=== PATIENT | female | born 1970 | race African-American/Black ===

== ENCOUNTER 2018-12-26 20:19 | Emergency (ER) | payer MEDICAID ==
[~2018-12-26] VITALS: Ht 170.2 cm; Wt 163.3 kg
[2018-12-26 20:28] VITALS: BP 153/92
== END 2018-12-26 21:41 | disposition home or self-care (01) ==
LOC: ER 20:24
DX: I10 Essential (primary) hypertension (principal); Z76.0 Encounter for issue of repeat prescription

== ENCOUNTER 2020-05-21 11:22 | Emergency (ER) | payer MEDICAID ==
[~2020-05-21] VITALS: Ht 175.3 cm; Wt 90.7 kg
[2020-05-21 14:20] VITALS: BP 135/78
== END 2020-05-21 14:21 | disposition home or self-care (01) ==
LOC: ER 11:22
DX: U07.1 COVID-19 (principal); R19.7 Diarrhea, unspecified; F17.210 Nicotine dependence, cigarettes, uncomplicated; I10 Essential (primary) hypertension
CPT/HCPCS: 36415; 87426

== ENCOUNTER 2020-05-24 17:58 | Inpatient (IN) | payer MEDICAID ==
[~2020-05-24] VITALS: Ht 170.2 cm; Wt 170.2 kg
[2020-05-24 19:52] LABS: Basophils # (auto) 0 10 ^3/uL (0-0.2); Basophils % (auto) 0.6 % (0.0-2.0); Eosinophils # (auto) 0 10 ^3/uL (0-0.8); Hematocrit 34.8 % (36.0-46.0); Hemoglobin 11.2 g/dL (12.2-16.2); Lymphocytes # (auto) 0.7 10 ^3/uL (0.4-5.4); Lymphocytes % (auto) 33.8 % (10.0-50.0); Mean Corpuscular Hemoglobin 30.2 pg (28.0-32.0); Mean Corpuscular Hgb Conc. 32.2 g/dL (32.0-36.0); Mean Corpuscular Volume 93.9 fL (80.0-100.0); Monocytes # (auto) 0.3 10 ^3/uL (0-1.3); Monocytes % (auto) 15.7 % (0.0-12.0); Neutrophils # (auto) 1.1 10 ^3/uL (1.6-8.6); Neutrophils % (auto) 49.9 % (37.0-80.0); Nucleated Red Blood Cells % 0.2 %; Platelet Count (auto) 110 10^3/uL (140-450); Red Blood Cells 3.71 10^6/uL (4.0-5.20); Red Cell Distribution Width 16.2 % (11.8-14.3); White Blood Cell 2.1 10^3/uL (4.4-10.8)
[2020-05-24 20:00] LABS: Urine Bacteria NONE SEEN /hpf (None Seen); Urine Blood 3+ /uL (Negative); Urine WBC 1167 /hpf (0 - 5); Urine WBC Clumps PRESENT /hpf (None Seen)
[2020-05-24 20:02] LABS: Urine Specific Gravity 1.015 (1.001-1.035)
[2020-05-24 20:09] LABS: BUN/Creatinine Ratio 9.2; Calcium 8.4 mg/dL (8.5-10.1); Magnesium 1.9 mg/dL (1.6-2.6); Potassium 3.7 mmol/L (3.5-5.1)
[2020-05-24 20:14] LABS: Bilirubin, Total 0.2 mg/dL (0.2-1.0); Total Protein 7.6 g/dL (6.4-8.2)
[2020-05-24] MEDS ORDERED: SODIUM CHLORIDE 0.9% 1,000 ML IVB ONE (20:45)
[2020-05-24] MEDS ORDERED: ONDANSETRON HCL 4 MG/2 ML VIAL IV PRN (21:30)
[2020-05-24] MEDS ORDERED: NITROGLYCERIN 0.4 MG SL TAB SL PRN (21:30)
[2020-05-24] MEDS ORDERED: MORPHINE SULF INJ 2 MG/ML SYRINGE 1ML IV PRN (21:30)
[2020-05-24] MEDS ORDERED: cefTRIAXone 1GM/50ML D5W 50 ML IV ONE (21:30)
[2020-05-24] MEDS ORDERED: ACETAMINOPHEN 325 MG TAB PO PRN (21:30)
[2020-05-24] MEDS ORDERED: SODIUM CHLORIDE 0.9% 1,000 ML IV SCH (21:30)
[2020-05-24] MEDS: ALBUTEROL SULF HFA 90MCG INH 200DOSE IN SCH (22:00)
[2020-05-24 22:30] LABS: CRP High Sensitivity 2.38 mg/dL (< 0.3)
[2020-05-24 22:49] VITALS: BP 132/67
[2020-05-24] MEDS: DOXYCYCLINE 100MG/250ML 250 ML IV SCH (23:10)
[2020-05-24] MEDS: FAMOTIDINE 20 MG TAB PO SCH (23:10)
[2020-05-24 23:34] VITALS: BP 132/67
[2020-05-25 02:34] VITALS: BP 132/67
[2020-05-25] MEDS ORDERED: METO-169 PO (03:08)
[2020-05-25] MEDS ORDERED: LEVO50TA7 PO (03:08)
[2020-05-25] MEDS ORDERED: FERR-20 PO (03:08)
[2020-05-25] MEDS ORDERED: ASPI-266 PO (03:08)
[2020-05-25] MEDS ORDERED: TRAZ-181 PO (03:08)
[2020-05-25] MEDS ORDERED: ESCI10TA53 PO (03:08)
[2020-05-25] MEDS ORDERED: BENA40TA7 PO (03:08)
[2020-05-25] MEDS ORDERED: QUET300T23 PO (03:08)
[2020-05-25] MEDS ORDERED: RISP4TAB53 PO (03:08)
[2020-05-25] MEDS ORDERED: DIVA500T13 PO (03:08)
[2020-05-25] MEDS ORDERED: AMLO5TAB15 PO (03:08)
[2020-05-25 05:00] VITALS: BP 128/70
[2020-05-25 05:53] LABS: Hematocrit 32.7 % (36.0-46.0); Hemoglobin 10.4 g/dL (12.2-16.2); Mean Corpuscular Hemoglobin 30.1 pg (28.0-32.0); Mean Corpuscular Hgb Conc. 31.9 g/dL (32.0-36.0); Mean Corpuscular Volume 94.4 fL (80.0-100.0); Platelet Count (auto) 104 10^3/uL (140-450); Red Blood Cells 3.46 10^6/uL (4.0-5.20); Red Cell Distribution Width 15.8 % (11.8-14.3)
[2020-05-25] MEDS: ALBUTEROL SULF HFA 90MCG INH 200DOSE IN SCH ×3 (06:00→22:02)
[2020-05-25 06:11] LABS: Albumin 2.6 g/dL (3.4-5.0); Calcium 8.2 mg/dL (8.5-10.1)
[2020-05-25 06:14] LABS: BUN/Creatinine Ratio 8.5; Bilirubin, Total 0.2 mg/dL (0.2-1.0); Total Protein 6.7 g/dL (6.4-8.2)
[2020-05-25 06:29] LABS: Band Neutrophils % (manual) 0; Basophils % (manual) 0 (0.0-2.0); Blast Cells 0; Eosinophils % (manual) 0 (0-7); Metamyelocytes % 0; Promyelocytes % 0; Reactive Lymphocytes 0
[2020-05-25] MEDS: LEVOTHYROXINE SODIUM 50 MCG TAB PO SCH (07:04)
[2020-05-25 07:51] LABS: Lymphocytes % (manual) 45 (10.0-50.0); Monocytes % (manual) 4 (0-12); Myelocytes % 1
[2020-05-25 08:58] VITALS: BP 147/80
[2020-05-25] MEDS: DexAMETHasone SOD PHOS 10MG/1ML VIAL INJ IV SCH (09:21)
[2020-05-25] MEDS: amLODIPine BESYLATE 5 MG TAB PO SCH (09:22)
[2020-05-25] MEDS: DOXYCYCLINE 100MG/250ML 250 ML IV SCH ×2 (09:22→22:32)
[2020-05-25] MEDS: ZINC SULFATE 220mg CAP or TAB PO SCH (09:22)
[2020-05-25] MEDS: METOPROLOL SUCCINATE XL 50 MG TAB PO SCH (09:23)
[2020-05-25] MEDS: ASCORBIC ACID 1,000 MG TAB PO SCH (09:23)
[2020-05-25] MEDS: FAMOTIDINE 20 MG TAB PO SCH ×2 (09:23→22:32)
[2020-05-25] MEDS: CHOLECALCIFEROL (VITD3) 2,000 UNIT CAP PO SCH (09:23)
[2020-05-25] MEDS: ENOXAPARIN SOD 40 MG/0.4 ML SYRINGE SC SCH (09:24)
[2020-05-25] MEDS ORDERED: REMDESIVIR PER PHARMACY IV SCH (11:30)
[2020-05-25 13:00] VITALS: BP 143/84
[2020-05-25 17:00] VITALS: BP 149/77
[2020-05-25] MEDS ORDERED: REMDESIVIR 200 MG in NS 210ml LOADING DOSE ADULT IV ONE (17:00)
[2020-05-25 21:58] VITALS: BP 165/93
[2020-05-25] MEDS ORDERED: risperiDONE 1 MG TAB PO ONE (22:15)
[2020-05-25] MEDS ORDERED: QUEtiapine FUMARATE 100 MG TAB PO ONE (22:15)
[2020-05-26] VITALS (8 sets, daily range): BP systolic 129–160; BP diastolic 69–86
[2020-05-26] MEDS: risperiDONE 1 MG TAB PO SCH ×3 (06:35→21:57)
[2020-05-26] MEDS: LEVOTHYROXINE SODIUM 50 MCG TAB PO SCH (06:36)
[2020-05-26] MEDS: ALBUTEROL SULF HFA 90MCG INH 200DOSE IN SCH ×3 (07:16→22:36)
[2020-05-26] MEDS: DOXYCYCLINE 100MG/250ML 250 ML IV SCH ×2 (09:19→21:56)
[2020-05-26] MEDS: DexAMETHasone SOD PHOS 10MG/1ML VIAL INJ IV SCH (09:19)
[2020-05-26] MEDS: ZINC SULFATE 220mg CAP or TAB PO SCH (09:19)
[2020-05-26] MEDS: amLODIPine BESYLATE 5 MG TAB PO SCH (09:20)
[2020-05-26] MEDS: FAMOTIDINE 20 MG TAB PO SCH ×2 (09:20→21:57)
[2020-05-26] MEDS: CHOLECALCIFEROL (VITD3) 2,000 UNIT CAP PO SCH (09:21)
[2020-05-26] MEDS: ENOXAPARIN SOD 40 MG/0.4 ML SYRINGE SC SCH (09:21)
[2020-05-26] MEDS: METOPROLOL SUCCINATE XL 50 MG TAB PO SCH (09:21)
[2020-05-26] MEDS: ASCORBIC ACID 1,000 MG TAB PO SCH (09:21)
[2020-05-26 11:31] LABS: Basophils # (auto) 0 10 ^3/uL (0-0.2); Basophils % (auto) 0.3 % (0.0-2.0); Eosinophils # (auto) 0 10 ^3/uL (0-0.8); Hematocrit 32.8 % (36.0-46.0); Hemoglobin 10.7 g/dL (12.2-16.2); Lymphocytes # (auto) 0.5 10 ^3/uL (0.4-5.4); Lymphocytes % (auto) 15.7 % (10.0-50.0); Mean Corpuscular Hemoglobin 30.6 pg (28.0-32.0); Mean Corpuscular Hgb Conc. 32.6 g/dL (32.0-36.0); Mean Corpuscular Volume 93.9 fL (80.0-100.0); Monocytes # (auto) 0.3 10 ^3/uL (0-1.3); Neutrophils # (auto) 2.2 10 ^3/uL (1.6-8.6); Nucleated Red Blood Cells % 0.2 %; Platelet Count (auto) 121 10^3/uL (140-450); Red Blood Cells 3.49 10^6/uL (4.0-5.20); Red Cell Distribution Width 15.9 % (11.8-14.3); White Blood Cell 2.9 10^3/uL (4.4-10.8)
[2020-05-26 11:43] LABS: BUN/Creatinine Ratio 8.9; Calcium 8.5 mg/dL (8.5-10.1); Potassium 3.8 mmol/L (3.5-5.1)
[2020-05-26] MEDS: REMDESIVIR 100mg in NS 230ml DAILYx4DAYS (NO VENT) IV SCH (17:14)
[2020-05-26] MEDS: QUEtiapine FUMARATE 100 MG TAB PO SCH (21:57)
[2020-05-27] VITALS (7 sets, daily range): BP systolic 137–152; BP diastolic 69–88
[2020-05-27] MEDS: risperiDONE 1 MG TAB PO SCH ×3 (06:17→21:42)
[2020-05-27] MEDS: ALBUTEROL SULF HFA 90MCG INH 200DOSE IN SCH ×3 (06:25→21:42)
[2020-05-27] MEDS: LEVOTHYROXINE SODIUM 50 MCG TAB PO SCH (06:32)
[2020-05-27 08:02] LABS: Albumin 2.8 g/dL (3.4-5.0); BUN/Creatinine Ratio 13.1; Bilirubin, Total 0.2 mg/dL (0.2-1.0); Calcium 8.7 mg/dL (8.5-10.1); Total Protein 7.2 g/dL (6.4-8.2)
[2020-05-27] MEDS: DexAMETHasone SOD PHOS 10MG/1ML VIAL INJ IV SCH (11:43)
[2020-05-27] MEDS: DOXYCYCLINE 100MG/250ML 250 ML IV SCH ×2 (11:44→21:33)
[2020-05-27] MEDS: ZINC SULFATE 220mg CAP or TAB PO SCH (11:44)
[2020-05-27] MEDS: amLODIPine BESYLATE 5 MG TAB PO SCH (11:45)
[2020-05-27] MEDS: METOPROLOL SUCCINATE XL 50 MG TAB PO SCH (11:46)
[2020-05-27] MEDS: CHOLECALCIFEROL (VITD3) 2,000 UNIT CAP PO SCH (11:46)
[2020-05-27] MEDS: ASCORBIC ACID 1,000 MG TAB PO SCH (11:46)
[2020-05-27] MEDS: FAMOTIDINE 20 MG TAB PO SCH ×2 (11:46→21:33)
[2020-05-27] MEDS: ENOXAPARIN SOD 40 MG/0.4 ML SYRINGE SC SCH (11:47)
[2020-05-27] MEDS: REMDESIVIR 100mg in NS 230ml DAILYx4DAYS (NO VENT) IV SCH (17:36)
[2020-05-27] MEDS: QUEtiapine FUMARATE 100 MG TAB PO SCH (21:33)
[2020-05-28 05:00] VITALS: BP 137/79
[2020-05-28] MEDS: ALBUTEROL SULF HFA 90MCG INH 200DOSE IN SCH ×3 (06:20→21:33)
[2020-05-28 06:25] LABS: Basophils # (auto) 0 10 ^3/uL (0-0.2); Basophils % (auto) 0.5 % (0.0-2.0); Eosinophils # (auto) 0 10 ^3/uL (0-0.8); Hematocrit 32.3 % (36.0-46.0); Hemoglobin 10.2 g/dL (12.2-16.2); Lymphocytes # (auto) 0.8 10 ^3/uL (0.4-5.4); Lymphocytes % (auto) 26.9 % (10.0-50.0); Mean Corpuscular Hemoglobin 29.8 pg (28.0-32.0); Mean Corpuscular Hgb Conc. 31.7 g/dL (32.0-36.0); Monocytes # (auto) 0.6 10 ^3/uL (0-1.3); Monocytes % (auto) 17.9 % (0.0-12.0); Neutrophils # (auto) 1.7 10 ^3/uL (1.6-8.6); Neutrophils % (auto) 54.7 % (37.0-80.0); Nucleated Red Blood Cells % 0.1 %; Platelet Count (auto) 153 10^3/uL (140-450); Red Blood Cells 3.43 10^6/uL (4.0-5.20); Red Cell Distribution Width 15.7 % (11.8-14.3); White Blood Cell 3.1 10^3/uL (4.4-10.8)
[2020-05-28 06:47] LABS: Albumin 2.9 g/dL (3.4-5.0); Calcium 8.6 mg/dL (8.5-10.1); Potassium 4.3 mmol/L (3.5-5.1)
[2020-05-28 06:50] LABS: BUN/Creatinine Ratio 16.9; Bilirubin, Total 0.2 mg/dL (0.2-1.0); Total Protein 7.3 g/dL (6.4-8.2)
[2020-05-28] MEDS: risperiDONE 1 MG TAB PO SCH ×3 (06:50→22:16)
[2020-05-28] MEDS: LEVOTHYROXINE SODIUM 50 MCG TAB PO SCH (06:50)
[2020-05-28 09:00] VITALS: BP 133/83
[2020-05-28] MEDS: ZINC SULFATE 220mg CAP or TAB PO SCH (12:07)
[2020-05-28] MEDS: DexAMETHasone SOD PHOS 10MG/1ML VIAL INJ IV SCH (12:07)
[2020-05-28] MEDS: FAMOTIDINE 20 MG TAB PO SCH ×2 (12:08→22:03)
[2020-05-28] MEDS: amLODIPine BESYLATE 5 MG TAB PO SCH (12:08)
[2020-05-28] MEDS: METOPROLOL SUCCINATE XL 50 MG TAB PO SCH (12:09)
[2020-05-28] MEDS: CHOLECALCIFEROL (VITD3) 2,000 UNIT CAP PO SCH (12:09)
[2020-05-28] MEDS: DOXYCYCLINE 100MG/250ML 250 ML IV SCH ×2 (12:35→22:01)
[2020-05-28] MEDS: ASCORBIC ACID 1,000 MG TAB PO SCH (12:35)
[2020-05-28] MEDS: ENOXAPARIN SOD 40 MG/0.4 ML SYRINGE SC SCH (12:36)
[2020-05-28 13:35] VITALS: BP 146/82
[2020-05-28 17:00] VITALS: BP 164/94
[2020-05-28] MEDS: REMDESIVIR 100mg in NS 230ml DAILYx4DAYS (NO VENT) IV SCH (17:23)
[2020-05-28 22:00] VITALS: BP 142/72
[2020-05-28] MEDS: QUEtiapine FUMARATE 100 MG TAB PO SCH (22:02)
[2020-05-28] MEDS: TEMAZEPAM 15 MG CAP PO PRN (22:03)
[2020-05-29 05:00] VITALS: BP 137/82
[2020-05-29] MEDS: LEVOTHYROXINE SODIUM 50 MCG TAB PO SCH (05:25)
[2020-05-29] MEDS: risperiDONE 1 MG TAB PO SCH ×3 (05:25→21:13)
[2020-05-29] MEDS: ALBUTEROL SULF HFA 90MCG INH 200DOSE IN SCH ×3 (06:18→23:21)
[2020-05-29 09:00] VITALS: BP 151/81
[2020-05-29] MEDS: DOXYCYCLINE 100MG/250ML 250 ML IV SCH (10:42)
[2020-05-29] MEDS: FAMOTIDINE 20 MG TAB PO SCH ×2 (10:42→21:14)
[2020-05-29] MEDS: ASCORBIC ACID 1,000 MG TAB PO SCH (10:42)
[2020-05-29] MEDS: CHOLECALCIFEROL (VITD3) 2,000 UNIT CAP PO SCH (10:42)
[2020-05-29] MEDS: METOPROLOL SUCCINATE XL 50 MG TAB PO SCH (10:42)
[2020-05-29] MEDS: ZINC SULFATE 220mg CAP or TAB PO SCH (10:42)
[2020-05-29] MEDS: amLODIPine BESYLATE 5 MG TAB PO SCH (10:42)
[2020-05-29] MEDS: ENOXAPARIN SOD 40 MG/0.4 ML SYRINGE SC SCH (10:42)
[2020-05-29] MEDS: DexAMETHasone SOD PHOS 10MG/1ML VIAL INJ IV SCH (11:00)
[2020-05-29 13:00] VITALS: BP 128/78
[2020-05-29 17:00] VITALS: BP 129/70
[2020-05-29] MEDS: REMDESIVIR 100mg in NS 230ml DAILYx4DAYS (NO VENT) IV SCH (17:05)
[2020-05-29] MEDS: QUEtiapine FUMARATE 100 MG TAB PO SCH (21:14)
[2020-05-29 22:00] VITALS: BP 150/80
[2020-05-29 23:33] VITALS: BP 111/76
[2020-05-30] VITALS (7 sets, daily range): BP systolic 123–150; BP diastolic 68–78
[2020-05-30] MEDS: risperiDONE 1 MG TAB PO SCH ×4 (05:43→21:42)
[2020-05-30] MEDS: LEVOTHYROXINE SODIUM 50 MCG TAB PO SCH (05:43)
[2020-05-30] MEDS: ALBUTEROL SULF HFA 90MCG INH 200DOSE IN SCH ×3 (07:16→22:32)
[2020-05-30] MEDS: METOPROLOL SUCCINATE XL 50 MG TAB PO SCH (10:00)
[2020-05-30] MEDS: ZINC SULFATE 220mg CAP or TAB PO SCH (11:17)
[2020-05-30] MEDS: DexAMETHasone SOD PHOS 10MG/1ML VIAL INJ IV SCH (11:17)
[2020-05-30] MEDS: FAMOTIDINE 20 MG TAB PO SCH ×2 (11:18→21:35)
[2020-05-30] MEDS: amLODIPine BESYLATE 5 MG TAB PO SCH (11:18)
[2020-05-30] MEDS: ENOXAPARIN SOD 40 MG/0.4 ML SYRINGE SC SCH (11:19)
[2020-05-30] MEDS: CHOLECALCIFEROL (VITD3) 2,000 UNIT CAP PO SCH (11:19)
[2020-05-30] MEDS: ASCORBIC ACID 1,000 MG TAB PO SCH (11:19)
[2020-05-30] MEDS: QUEtiapine FUMARATE 100 MG TAB PO SCH (21:35)
[2020-05-30] MEDS: TEMAZEPAM 15 MG CAP PO PRN (21:35)
[2020-05-31 04:24] VITALS: BP 129/72
[2020-05-31 05:00] VITALS: BP 18/66
[2020-05-31] MEDS: risperiDONE 1 MG TAB PO SCH ×4 (05:39→21:32)
[2020-05-31] MEDS: LEVOTHYROXINE SODIUM 50 MCG TAB PO SCH (05:39)
[2020-05-31] MEDS: ALBUTEROL SULF HFA 90MCG INH 200DOSE IN SCH ×3 (06:15→19:25)
[2020-05-31 07:04] LABS: Hematocrit 31.9 % (36.0-46.0); Hemoglobin 10.4 g/dL (12.2-16.2); Mean Corpuscular Hemoglobin 30.3 pg (28.0-32.0); Mean Corpuscular Hgb Conc. 32.5 g/dL (32.0-36.0); Mean Corpuscular Volume 93.3 fL (80.0-100.0); Platelet Count (auto) 215 10^3/uL (140-450); Red Blood Cells 3.42 10^6/uL (4.0-5.20); Red Cell Distribution Width 15.7 % (11.8-14.3)
[2020-05-31 07:11] LABS: Basophils % (manual) 0 (0.0-2.0); Blast Cells 0; Eosinophils % (manual) 0 (0-7); Myelocytes % 0; Promyelocytes % 0; Reactive Lymphocytes 0
[2020-05-31 07:14] LABS: BUN/Creatinine Ratio 17.6; Calcium 8.3 mg/dL (8.5-10.1); Magnesium 1.8 mg/dL (1.6-2.6)
[2020-05-31 08:30] LABS: Band Neutrophils % (manual) 4; Lymphocytes % (manual) 27 (10.0-50.0); Metamyelocytes % 3; Monocytes % (manual) 9 (0-12)
[2020-05-31 08:39] VITALS: BP 125/65
[2020-05-31] MEDS: DexAMETHasone SOD PHOS 10MG/1ML VIAL INJ IV SCH (11:24)
[2020-05-31] MEDS: ZINC SULFATE 220mg CAP or TAB PO SCH (11:24)
[2020-05-31] MEDS: amLODIPine BESYLATE 5 MG TAB PO SCH (11:25)
[2020-05-31] MEDS: METOPROLOL SUCCINATE XL 50 MG TAB PO SCH (11:25)
[2020-05-31] MEDS: FAMOTIDINE 20 MG TAB PO SCH ×2 (11:25→21:32)
[2020-05-31] MEDS: ASCORBIC ACID 1,000 MG TAB PO SCH (11:26)
[2020-05-31] MEDS: ENOXAPARIN SOD 40 MG/0.4 ML SYRINGE SC SCH (11:26)
[2020-05-31] MEDS: CHOLECALCIFEROL (VITD3) 2,000 UNIT CAP PO SCH (11:26)
[2020-05-31 12:37] VITALS: BP 130/68
[2020-05-31] MEDS ORDERED: risperiDONE 1 MG TAB PO SCH (14:00)
[2020-05-31 17:00] VITALS: BP 143/70
[2020-05-31] MEDS: QUEtiapine FUMARATE 100 MG TAB PO SCH (21:33)
[2020-05-31] MEDS: TEMAZEPAM 15 MG CAP PO PRN (21:33)
[2020-05-31 22:00] VITALS: BP 148/80
[2020-06-01 05:00] VITALS: BP 132/60
[2020-06-01] MEDS: risperiDONE 1 MG TAB PO SCH ×2 (05:41→14:04)
[2020-06-01] MEDS: LEVOTHYROXINE SODIUM 50 MCG TAB PO SCH (05:41)
[2020-06-01] MEDS: ALBUTEROL SULF HFA 90MCG INH 200DOSE IN SCH (06:51)
[2020-06-01 08:30] VITALS: BP 108/70
[2020-06-01] MEDS: DexAMETHasone SOD PHOS 10MG/1ML VIAL INJ IV SCH (10:33)
[2020-06-01] MEDS: ZINC SULFATE 220mg CAP or TAB PO SCH (10:33)
[2020-06-01] MEDS: amLODIPine BESYLATE 5 MG TAB PO SCH (10:34)
[2020-06-01] MEDS: FAMOTIDINE 20 MG TAB PO SCH ×2 (10:34→21:52)
[2020-06-01] MEDS: METOPROLOL SUCCINATE XL 50 MG TAB PO SCH (10:35)
[2020-06-01] MEDS: ASCORBIC ACID 1,000 MG TAB PO SCH (10:35)
[2020-06-01] MEDS: CHOLECALCIFEROL (VITD3) 2,000 UNIT CAP PO SCH (10:35)
[2020-06-01] MEDS: ENOXAPARIN SOD 40 MG/0.4 ML SYRINGE SC SCH (10:36)
[2020-06-01 13:00] VITALS: BP 120/70
[2020-06-01 17:17] VITALS: BP 104/64
[2020-06-01] MEDS ORDERED: PATIENTS OWN MEDICATION (Ferrous Sulfate 325 MG) PO SCH (18:00)
[2020-06-01] MEDS: FERROUS SULFATE 325 MG TAB PO SCH (18:18)
[2020-06-01] MEDS: ALBUTEROL SULF HFA 90MCG INH 200DOSE IN PRN (21:39)
[2020-06-01] MEDS: QUEtiapine FUMARATE 100 MG TAB PO SCH (21:52)
[2020-06-01 22:00] VITALS: BP 132/78
[2020-06-01] MEDS ORDERED: QUETIAPINE FUMERATE 300 MG PO SCH (22:00)
[2020-06-01] MEDS ORDERED: PATIENTS OWN MEDICATION (Divalproex Sodium 500 MG) PO SCH (22:00)
[2020-06-01] MEDS ORDERED: RISPERIDONE 4 MG PO SCH (22:00)
[2020-06-01] MEDS ORDERED: traZODone HCL 50 MG TAB PO SCH (22:00)
[2020-06-02 05:00] VITALS: BP 126/72
[2020-06-02] MEDS: LEVOTHYROXINE SODIUM 50 MCG TAB PO SCH (07:13)
[2020-06-02] MEDS: FERROUS SULFATE 325 MG TAB PO SCH ×2 (08:29→17:35)
[2020-06-02 09:00] VITALS: BP 119/63
[2020-06-02] MEDS: ALBUTEROL SULF HFA 90MCG INH 200DOSE IN PRN ×2 (09:30→22:16)
[2020-06-02] MEDS: DexAMETHasone SOD PHOS 10MG/1ML VIAL INJ IV SCH (09:49)
[2020-06-02] MEDS: ESCITALOPRAM 10MG PO SCH (09:50)
[2020-06-02] MEDS: ZINC SULFATE 220mg CAP or TAB PO SCH (09:50)
[2020-06-02] MEDS: BENAZEPRIL HCL 10 MG TAB PO SCH (09:51)
[2020-06-02] MEDS: FAMOTIDINE 20 MG TAB PO SCH ×2 (09:51→21:07)
[2020-06-02] MEDS: amLODIPine BESYLATE 5 MG TAB PO SCH (09:51)
[2020-06-02] MEDS: CHOLECALCIFEROL (VITD3) 2,000 UNIT CAP PO SCH (09:52)
[2020-06-02] MEDS: ASCORBIC ACID 1,000 MG TAB PO SCH (09:52)
[2020-06-02] MEDS: METOPROLOL SUCCINATE XL 50 MG TAB PO SCH (09:52)
[2020-06-02] MEDS: ENOXAPARIN SOD 40 MG/0.4 ML SYRINGE SC SCH (09:53)
[2020-06-02] MEDS: ASPirin-EC 81 mg tab PO SCH (09:55)
[2020-06-02] MEDS ORDERED: METOPROLOL SUCCINATE XL 50 MG TAB PO SCH ×2 (10:00)
[2020-06-02] MEDS ORDERED: PATIENTS OWN MEDICATION (Benazepril Hcl 40 MG) PO SCH (10:00)
[2020-06-02] MEDS ORDERED: PATIENTS OWN MEDICATION (Escitalopram Oxalate 1 TAB) PO SCH (10:00)
[2020-06-02 13:06] VITALS: BP 134/75
[2020-06-02 16:57] VITALS: BP 136/64
[2020-06-02] MEDS: QUEtiapine FUMARATE 100 MG TAB PO SCH (21:07)
[2020-06-02] MEDS: TEMAZEPAM 15 MG CAP PO PRN (21:08)
[2020-06-02 22:00] VITALS: BP 118/63
[2020-06-03 05:00] VITALS: BP 109/61
[2020-06-03] MEDS: LEVOTHYROXINE SODIUM 50 MCG TAB PO SCH (06:05)
[2020-06-03 08:30] VITALS: BP 114/58
[2020-06-03] MEDS: FERROUS SULFATE 325 MG TAB PO SCH ×2 (09:14→17:03)
[2020-06-03] MEDS: ESCITALOPRAM 10MG PO SCH (10:00)
[2020-06-03] MEDS: METOPROLOL SUCCINATE XL 50 MG TAB PO SCH (10:00)
[2020-06-03] MEDS: DexAMETHasone SOD PHOS 10MG/1ML VIAL INJ IV SCH (10:18)
[2020-06-03] MEDS: ASPirin-EC 81 mg tab PO SCH (10:18)
[2020-06-03] MEDS: ZINC SULFATE 220mg CAP or TAB PO SCH (10:18)
[2020-06-03] MEDS: FAMOTIDINE 20 MG TAB PO SCH ×2 (10:19→21:04)
[2020-06-03] MEDS: BENAZEPRIL HCL 10 MG TAB PO SCH (10:19)
[2020-06-03] MEDS: CHOLECALCIFEROL (VITD3) 2,000 UNIT CAP PO SCH (10:19)
[2020-06-03] MEDS: ASCORBIC ACID 1,000 MG TAB PO SCH (10:19)
[2020-06-03] MEDS: ENOXAPARIN SOD 40 MG/0.4 ML SYRINGE SC SCH (10:19)
[2020-06-03] MEDS: amLODIPine BESYLATE 5 MG TAB PO SCH (10:19)
[2020-06-03 12:28] VITALS: BP 118/63
[2020-06-03 16:46] VITALS: BP 112/57
[2020-06-03] MEDS: TEMAZEPAM 15 MG CAP PO PRN (21:04)
[2020-06-03] MEDS: QUEtiapine FUMARATE 100 MG TAB PO SCH (21:04)
[2020-06-03] MEDS: ALBUTEROL SULF HFA 90MCG INH 200DOSE IN PRN (21:10)
[2020-06-03 22:00] VITALS: BP 102/55
[2020-06-04 05:19] VITALS: BP 100/57
[2020-06-04] MEDS: LEVOTHYROXINE SODIUM 50 MCG TAB PO SCH (06:02)
[2020-06-04] MEDS: FERROUS SULFATE 325 MG TAB PO SCH ×2 (08:41→17:08)
[2020-06-04 09:00] VITALS: BP 109/50
[2020-06-04] MEDS: DexAMETHasone SOD PHOS 10MG/1ML VIAL INJ IV SCH (09:37)
[2020-06-04] MEDS: BENAZEPRIL HCL 10 MG TAB PO SCH (09:37)
[2020-06-04] MEDS: ASPirin-EC 81 mg tab PO SCH (09:37)
[2020-06-04] MEDS: ZINC SULFATE 220mg CAP or TAB PO SCH (09:37)
[2020-06-04] MEDS: ESCITALOPRAM 10MG PO SCH (09:38)
[2020-06-04] MEDS: ENOXAPARIN SOD 40 MG/0.4 ML SYRINGE SC SCH (09:38)
[2020-06-04] MEDS: FAMOTIDINE 20 MG TAB PO SCH ×2 (09:38→21:55)
[2020-06-04] MEDS: ASCORBIC ACID 1,000 MG TAB PO SCH (09:38)
[2020-06-04] MEDS: CHOLECALCIFEROL (VITD3) 2,000 UNIT CAP PO SCH (09:38)
[2020-06-04] MEDS: amLODIPine BESYLATE 5 MG TAB PO SCH (09:38)
[2020-06-04] MEDS: METOPROLOL SUCCINATE XL 50 MG TAB PO SCH (09:39)
[2020-06-04 13:00] VITALS: BP 136/70
[2020-06-04] MEDS: ALBUTEROL SULF HFA 90MCG INH 200DOSE IN PRN (14:25)
[2020-06-04 17:39] VITALS: BP 116/52
[2020-06-04] MEDS: QUEtiapine FUMARATE 100 MG TAB PO SCH (21:55)
[2020-06-04] MEDS: TEMAZEPAM 15 MG CAP PO PRN (21:55)
[2020-06-04 23:42] VITALS: BP 103/55
[2020-06-05 05:23] VITALS: BP 112/72
[2020-06-05] MEDS: LEVOTHYROXINE SODIUM 50 MCG TAB PO SCH (06:11)
[2020-06-05] MEDS: FERROUS SULFATE 325 MG TAB PO SCH ×2 (07:49→16:30)
[2020-06-05 09:00] VITALS: BP 118/65
[2020-06-05] MEDS: ASPirin-EC 81 mg tab PO SCH (09:48)
[2020-06-05] MEDS: DexAMETHasone SOD PHOS 10MG/1ML VIAL INJ IV SCH (09:48)
[2020-06-05] MEDS: ZINC SULFATE 220mg CAP or TAB PO SCH (09:48)
[2020-06-05] MEDS: ASCORBIC ACID 1,000 MG TAB PO SCH (09:49)
[2020-06-05] MEDS: FAMOTIDINE 20 MG TAB PO SCH ×2 (09:49→21:51)
[2020-06-05] MEDS: amLODIPine BESYLATE 5 MG TAB PO SCH (09:49)
[2020-06-05] MEDS: BENAZEPRIL HCL 10 MG TAB PO SCH (09:49)
[2020-06-05] MEDS: CHOLECALCIFEROL (VITD3) 2,000 UNIT CAP PO SCH (09:49)
[2020-06-05] MEDS: ESCITALOPRAM 10MG PO SCH (09:50)
[2020-06-05] MEDS: ENOXAPARIN SOD 40 MG/0.4 ML SYRINGE SC SCH (09:50)
[2020-06-05] MEDS: METOPROLOL SUCCINATE XL 50 MG TAB PO SCH (09:52)
[2020-06-05 14:24] VITALS: BP 104/53
[2020-06-05] MEDS: ALBUTEROL SULF HFA 90MCG INH 200DOSE IN PRN (14:39)
[2020-06-05 17:03] VITALS: BP 110/73
[2020-06-05] MEDS: QUEtiapine FUMARATE 100 MG TAB PO SCH (21:51)
[2020-06-05] MEDS: TEMAZEPAM 15 MG CAP PO PRN (21:51)
[2020-06-06] MEDS: ALBUTEROL SULF HFA 90MCG INH 200DOSE IN PRN (01:13)
[2020-06-06] MEDS: LEVOTHYROXINE SODIUM 50 MCG TAB PO SCH (06:13)
[2020-06-06 06:25] VITALS: BP 114/78
[2020-06-06 06:47] LABS: Basophils # (auto) 0 10 ^3/uL (0-0.2); Basophils % (auto) 0.6 % (0.0-2.0); Eosinophils # (auto) 0.2 10 ^3/uL (0-0.8); Eosinophils % (auto) 3.1 % (0.0-7.0); Hematocrit 34.1 % (36.0-46.0); Hemoglobin 10.8 g/dL (12.2-16.2); Lymphocytes # (auto) 1.7 10 ^3/uL (0.4-5.4); Lymphocytes % (auto) 29.7 % (10.0-50.0); Mean Corpuscular Hemoglobin 29.9 pg (28.0-32.0); Mean Corpuscular Hgb Conc. 31.7 g/dL (32.0-36.0); Mean Corpuscular Volume 94.4 fL (80.0-100.0); Monocytes # (auto) 0.6 10 ^3/uL (0-1.3); Monocytes % (auto) 10.5 % (0.0-12.0); Neutrophils # (auto) 3.2 10 ^3/uL (1.6-8.6); Neutrophils % (auto) 56.1 % (37.0-80.0); Nucleated Red Blood Cells % 0.2 %; Platelet Count (auto) 188 10^3/uL (140-450); Red Blood Cells 3.61 10^6/uL (4.0-5.20); Red Cell Distribution Width 16.7 % (11.8-14.3); White Blood Cell 5.8 10^3/uL (4.4-10.8)
[2020-06-06 07:07] LABS: Potassium 4.5 mmol/L (3.5-5.1)
[2020-06-06 07:24] LABS: BUN/Creatinine Ratio 18.8; Calcium 8.7 mg/dL (8.5-10.1); Magnesium 2.3 mg/dL (1.6-2.6)
[2020-06-06] MEDS: FERROUS SULFATE 325 MG TAB PO SCH ×2 (08:47→17:25)
[2020-06-06 08:49] VITALS: BP 104/65
[2020-06-06] MEDS: ZINC SULFATE 220mg CAP or TAB PO SCH (10:00)
[2020-06-06] MEDS: ESCITALOPRAM 10MG PO SCH (10:00)
[2020-06-06] MEDS: amLODIPine BESYLATE 5 MG TAB PO SCH (10:06)
[2020-06-06] MEDS: BENAZEPRIL HCL 10 MG TAB PO SCH (10:06)
[2020-06-06] MEDS: FAMOTIDINE 20 MG TAB PO SCH ×2 (10:06→22:27)
[2020-06-06] MEDS: ASPirin-EC 81 mg tab PO SCH (10:06)
[2020-06-06] MEDS: CHOLECALCIFEROL (VITD3) 2,000 UNIT CAP PO SCH (10:07)
[2020-06-06] MEDS: ASCORBIC ACID 1,000 MG TAB PO SCH (10:07)
[2020-06-06] MEDS: METOPROLOL SUCCINATE XL 50 MG TAB PO SCH (10:07)
[2020-06-06 12:47] VITALS: BP 101/63
[2020-06-06 16:59] VITALS: BP 102/55
[2020-06-06] MEDS: QUEtiapine FUMARATE 100 MG TAB PO SCH (22:27)
[2020-06-06 22:40] VITALS: BP 93/65
[2020-06-07 05:30] VITALS: BP 122/74
[2020-06-07] MEDS: LEVOTHYROXINE SODIUM 50 MCG TAB PO SCH (06:49)
[2020-06-07] MEDS: FERROUS SULFATE 325 MG TAB PO SCH ×2 (08:13→17:09)
[2020-06-07 09:00] VITALS: BP 124/66
[2020-06-07] MEDS: ESCITALOPRAM 10MG PO SCH (10:00)
[2020-06-07] MEDS: ZINC SULFATE 220mg CAP or TAB PO SCH (10:27)
[2020-06-07] MEDS: ASPirin-EC 81 mg tab PO SCH (10:27)
[2020-06-07] MEDS: BENAZEPRIL HCL 10 MG TAB PO SCH (10:27)
[2020-06-07] MEDS: ASCORBIC ACID 1,000 MG TAB PO SCH (10:28)
[2020-06-07] MEDS: METOPROLOL SUCCINATE XL 50 MG TAB PO SCH (10:28)
[2020-06-07] MEDS: FAMOTIDINE 20 MG TAB PO SCH ×2 (10:28→22:41)
[2020-06-07] MEDS: amLODIPine BESYLATE 5 MG TAB PO SCH (10:28)
[2020-06-07] MEDS: CHOLECALCIFEROL (VITD3) 2,000 UNIT CAP PO SCH (10:29)
[2020-06-07 13:00] VITALS: BP 102/67
[2020-06-07 17:00] VITALS: BP 118/54
[2020-06-07] MEDS: ALBUTEROL SULF HFA 90MCG INH 200DOSE IN PRN (19:26)
[2020-06-07] MEDS: QUEtiapine FUMARATE 100 MG TAB PO SCH (22:41)
[2020-06-07 22:45] VITALS: BP 121/74
[2020-06-08 05:39] VITALS: BP 90/66
[2020-06-08] MEDS: LEVOTHYROXINE SODIUM 50 MCG TAB PO SCH (06:32)
[2020-06-08] MEDS: FERROUS SULFATE 325 MG TAB PO SCH ×2 (08:00→18:00)
[2020-06-08 09:00] VITALS: BP 123/64
[2020-06-08] MEDS: ESCITALOPRAM 10MG PO SCH (10:00)
[2020-06-08] MEDS: ASPirin-EC 81 mg tab PO SCH (10:30)
[2020-06-08] MEDS: CHOLECALCIFEROL (VITD3) 2,000 UNIT CAP PO SCH (10:30)
[2020-06-08] MEDS: amLODIPine BESYLATE 5 MG TAB PO SCH (10:30)
[2020-06-08] MEDS: ZINC SULFATE 220mg CAP or TAB PO SCH (10:30)
[2020-06-08] MEDS: BENAZEPRIL HCL 10 MG TAB PO SCH (10:30)
[2020-06-08] MEDS: ASCORBIC ACID 1,000 MG TAB PO SCH (10:30)
[2020-06-08] MEDS: METOPROLOL SUCCINATE XL 50 MG TAB PO SCH (10:33)
[2020-06-08] MEDS: FAMOTIDINE 20 MG TAB PO SCH ×2 (11:33→21:39)
[2020-06-08 13:00] VITALS: BP 126/65
[2020-06-08 17:00] VITALS: BP 138/75
[2020-06-08] MEDS: ALBUTEROL SULF HFA 90MCG INH 200DOSE IN PRN (20:19)
[2020-06-08] MEDS: QUEtiapine FUMARATE 100 MG TAB PO SCH (21:39)
[2020-06-08 22:11] VITALS: BP 125/76
[2020-06-09 05:00] VITALS: BP 130/95
[2020-06-09] MEDS: LEVOTHYROXINE SODIUM 50 MCG TAB PO SCH (06:32)
[2020-06-09] MEDS: ALBUTEROL SULF HFA 90MCG INH 200DOSE IN PRN (07:35)
[2020-06-09] MEDS: FERROUS SULFATE 325 MG TAB PO SCH ×2 (08:00→18:13)
[2020-06-09 08:22] VITALS: BP 120/56
[2020-06-09] MEDS: ESCITALOPRAM 10MG PO SCH (09:57)
[2020-06-09] MEDS: ASPirin-EC 81 mg tab PO SCH (09:58)
[2020-06-09] MEDS: amLODIPine BESYLATE 5 MG TAB PO SCH (09:58)
[2020-06-09] MEDS: ZINC SULFATE 220mg CAP or TAB PO SCH (09:58)
[2020-06-09] MEDS: BENAZEPRIL HCL 10 MG TAB PO SCH (09:58)
[2020-06-09] MEDS: ASCORBIC ACID 1,000 MG TAB PO SCH (09:59)
[2020-06-09] MEDS: FAMOTIDINE 20 MG TAB PO SCH ×2 (09:59→22:25)
[2020-06-09] MEDS: METOPROLOL SUCCINATE XL 50 MG TAB PO SCH (09:59)
[2020-06-09] MEDS: CHOLECALCIFEROL (VITD3) 2,000 UNIT CAP PO SCH (10:00)
[2020-06-09 12:00] VITALS: BP 135/92
[2020-06-09 16:00] VITALS: BP 128/68
[2020-06-09 21:59] VITALS: BP 133/75
[2020-06-09] MEDS: QUEtiapine FUMARATE 100 MG TAB PO SCH (22:26)
[2020-06-10 05:00] VITALS: BP 117/67
[2020-06-10] MEDS: LEVOTHYROXINE SODIUM 50 MCG TAB PO SCH (07:00)
[2020-06-10] MEDS: ALBUTEROL SULF HFA 90MCG INH 200DOSE IN PRN ×2 (07:21→23:51)
[2020-06-10] MEDS: FERROUS SULFATE 325 MG TAB PO SCH ×2 (08:38→19:06)
[2020-06-10] MEDS: CHOLECALCIFEROL (VITD3) 2,000 UNIT CAP PO SCH (08:38)
[2020-06-10] MEDS: ASPirin-EC 81 mg tab PO SCH (08:39)
[2020-06-10] MEDS: ASCORBIC ACID 1,000 MG TAB PO SCH (08:39)
[2020-06-10] MEDS: ZINC SULFATE 220mg CAP or TAB PO SCH (08:40)
[2020-06-10] MEDS: FAMOTIDINE 20 MG TAB PO SCH ×2 (08:41→21:00)
[2020-06-10] MEDS: METOPROLOL SUCCINATE XL 50 MG TAB PO SCH (08:52)
[2020-06-10] MEDS: amLODIPine BESYLATE 5 MG TAB PO SCH (08:52)
[2020-06-10] MEDS: BENAZEPRIL HCL 10 MG TAB PO SCH (08:53)
[2020-06-10 09:00] VITALS: BP 128/68
[2020-06-10] MEDS: ESCITALOPRAM 10MG PO SCH (10:00)
[2020-06-10 13:00] VITALS: BP 120/76
[2020-06-10 17:00] VITALS: BP 124/84
[2020-06-10] MEDS: QUEtiapine FUMARATE 100 MG TAB PO SCH (21:00)
[2020-06-10 22:00] VITALS: BP 136/71
[2020-06-11 05:00] VITALS: BP 119/76
[2020-06-11] MEDS: LEVOTHYROXINE SODIUM 50 MCG TAB PO SCH (06:08)
[2020-06-11] MEDS: ALBUTEROL SULF HFA 90MCG INH 200DOSE IN PRN (07:45)
[2020-06-11 08:00] VITALS: BP 142/72
[2020-06-11] MEDS: FERROUS SULFATE 325 MG TAB PO SCH ×2 (08:15→18:08)
[2020-06-11] MEDS: ZINC SULFATE 220mg CAP or TAB PO SCH (08:16)
[2020-06-11] MEDS: ASPirin-EC 81 mg tab PO SCH (08:16)
[2020-06-11] MEDS: BENAZEPRIL HCL 10 MG TAB PO SCH (08:16)
[2020-06-11] MEDS: FAMOTIDINE 20 MG TAB PO SCH ×2 (08:17→21:49)
[2020-06-11] MEDS: amLODIPine BESYLATE 5 MG TAB PO SCH (08:17)
[2020-06-11] MEDS: METOPROLOL SUCCINATE XL 50 MG TAB PO SCH (08:18)
[2020-06-11] MEDS: CHOLECALCIFEROL (VITD3) 2,000 UNIT CAP PO SCH (08:18)
[2020-06-11] MEDS: ASCORBIC ACID 1,000 MG TAB PO SCH (08:18)
[2020-06-11 09:00] VITALS: BP 142/72
[2020-06-11] MEDS: ESCITALOPRAM 10MG PO SCH (10:00)
[2020-06-11 16:13] VITALS: BP 131/69
[2020-06-11 17:00] VITALS: BP 118/56
[2020-06-11] MEDS: QUEtiapine FUMARATE 100 MG TAB PO SCH (21:49)
[2020-06-11 22:00] VITALS: BP 134/72
[2020-06-12 05:00] VITALS: BP 113/75
[2020-06-12] MEDS: LEVOTHYROXINE SODIUM 50 MCG TAB PO SCH (06:03)
[2020-06-12] MEDS: FERROUS SULFATE 325 MG TAB PO SCH ×2 (09:11→18:38)
[2020-06-12] MEDS: ASCORBIC ACID 1,000 MG TAB PO SCH (09:11)
[2020-06-12] MEDS: FAMOTIDINE 20 MG TAB PO SCH ×2 (09:12→21:51)
[2020-06-12] MEDS: METOPROLOL SUCCINATE XL 50 MG TAB PO SCH (09:12)
[2020-06-12] MEDS: amLODIPine BESYLATE 5 MG TAB PO SCH (09:13)
[2020-06-12] MEDS: ASPirin-EC 81 mg tab PO SCH (09:13)
[2020-06-12] MEDS: ESCITALOPRAM 10MG PO SCH (09:14)
[2020-06-12] MEDS: BENAZEPRIL HCL 10 MG TAB PO SCH (09:14)
[2020-06-12] MEDS: ZINC SULFATE 220mg CAP or TAB PO SCH (09:14)
[2020-06-12] MEDS: CHOLECALCIFEROL (VITD3) 2,000 UNIT CAP PO SCH (09:15)
[2020-06-12] MEDS: QUEtiapine FUMARATE 100 MG TAB PO SCH (21:51)
[2020-06-12 22:00] VITALS: BP 120/64
[2020-06-13 05:00] VITALS: BP 121/63
[2020-06-13] MEDS: ALBUTEROL SULF HFA 90MCG INH 200DOSE IN PRN ×2 (06:23→20:33)
[2020-06-13] MEDS: LEVOTHYROXINE SODIUM 50 MCG TAB PO SCH (06:56)
[2020-06-13 08:00] VITALS: BP 120/63
[2020-06-13 09:00] VITALS: BP 120/63
[2020-06-13] MEDS: ESCITALOPRAM 10MG PO SCH (10:00)
[2020-06-13] MEDS: BENAZEPRIL HCL 10 MG TAB PO SCH (10:00)
[2020-06-13] MEDS: ZINC SULFATE 220mg CAP or TAB PO SCH (10:39)
[2020-06-13] MEDS: FERROUS SULFATE 325 MG TAB PO SCH ×2 (10:39→17:55)
[2020-06-13] MEDS: ASPirin-EC 81 mg tab PO SCH (10:40)
[2020-06-13] MEDS: FAMOTIDINE 20 MG TAB PO SCH ×2 (10:43→21:35)
[2020-06-13] MEDS: ASCORBIC ACID 1,000 MG TAB PO SCH (10:43)
[2020-06-13] MEDS: CHOLECALCIFEROL (VITD3) 2,000 UNIT CAP PO SCH (10:43)
[2020-06-13] MEDS: amLODIPine BESYLATE 5 MG TAB PO SCH (10:47)
[2020-06-13] MEDS: METOPROLOL SUCCINATE XL 50 MG TAB PO SCH (10:48)
[2020-06-13 17:00] VITALS: BP 118/76
[2020-06-13] MEDS: QUEtiapine FUMARATE 100 MG TAB PO SCH (21:35)
[2020-06-13 22:00] VITALS: BP 126/88
[2020-06-14 05:00] VITALS: BP 114/67
[2020-06-14] MEDS: LEVOTHYROXINE SODIUM 50 MCG TAB PO SCH (06:38)
[2020-06-14 08:00] VITALS: BP 110/69
[2020-06-14 08:16] VITALS: BP 110/69
[2020-06-14] MEDS: ALBUTEROL SULF HFA 90MCG INH 200DOSE IN PRN (08:45)
[2020-06-14] MEDS: FERROUS SULFATE 325 MG TAB PO SCH ×2 (09:26→19:20)
[2020-06-14] MEDS: amLODIPine BESYLATE 5 MG TAB PO SCH (09:27)
[2020-06-14] MEDS: ZINC SULFATE 220mg CAP or TAB PO SCH (09:27)
[2020-06-14] MEDS: ESCITALOPRAM 10MG PO SCH (09:27)
[2020-06-14] MEDS: ASPirin-EC 81 mg tab PO SCH (09:27)
[2020-06-14] MEDS: ASCORBIC ACID 1,000 MG TAB PO SCH (09:28)
[2020-06-14] MEDS: FAMOTIDINE 20 MG TAB PO SCH ×2 (09:28→21:47)
[2020-06-14] MEDS: CHOLECALCIFEROL (VITD3) 2,000 UNIT CAP PO SCH (09:28)
[2020-06-14] MEDS: METOPROLOL SUCCINATE XL 50 MG TAB PO SCH (09:29)
[2020-06-14] MEDS: BENAZEPRIL HCL 10 MG TAB PO SCH (10:00)
[2020-06-14 12:30] VITALS: BP 102/61
[2020-06-14 16:00] VITALS: BP 136/72
[2020-06-14] MEDS: QUEtiapine FUMARATE 100 MG TAB PO SCH (21:48)
[2020-06-14 22:00] VITALS: BP 126/74
[2020-06-15] MEDS: ALBUTEROL SULF HFA 90MCG INH 200DOSE IN PRN ×2 (00:12→19:04)
[2020-06-15 05:00] VITALS: BP 112/58
[2020-06-15] MEDS: LEVOTHYROXINE SODIUM 50 MCG TAB PO SCH (07:00)
[2020-06-15] MEDS ORDERED: BENAZEPRIL HCL 10 MG TAB ONE (08:18)
[2020-06-15] MEDS: FERROUS SULFATE 325 MG TAB PO SCH ×2 (08:30→17:14)
[2020-06-15 09:00] VITALS: BP 112/60
[2020-06-15] MEDS: ZINC SULFATE 220mg CAP or TAB PO SCH (09:38)
[2020-06-15] MEDS: ASPirin-EC 81 mg tab PO SCH (09:38)
[2020-06-15] MEDS: ASCORBIC ACID 1,000 MG TAB PO SCH (09:39)
[2020-06-15] MEDS: CHOLECALCIFEROL (VITD3) 2,000 UNIT CAP PO SCH (09:39)
[2020-06-15] MEDS: FAMOTIDINE 20 MG TAB PO SCH ×2 (09:39→21:43)
[2020-06-15] MEDS: amLODIPine BESYLATE 5 MG TAB PO SCH (09:39)
[2020-06-15] MEDS: METOPROLOL SUCCINATE XL 50 MG TAB PO SCH (09:40)
[2020-06-15] MEDS: ESCITALOPRAM 10MG PO SCH (09:40)
[2020-06-15] MEDS: BENAZEPRIL HCL 10 MG TAB PO SCH (09:49)
[2020-06-15 11:17] VITALS: BP 112/60
[2020-06-15 13:00] VITALS: BP 103/60
[2020-06-15 17:03] VITALS: BP 104/63
[2020-06-15] MEDS: QUEtiapine FUMARATE 100 MG TAB PO SCH (21:43)
[2020-06-15 22:00] VITALS: BP 120/69
[2020-06-16 05:00] VITALS: BP 125/69
[2020-06-16] MEDS: LEVOTHYROXINE SODIUM 50 MCG TAB PO SCH (06:40)
[2020-06-16] MEDS: ALBUTEROL SULF HFA 90MCG INH 200DOSE IN PRN ×2 (07:22→19:17)
[2020-06-16 09:00] VITALS: BP 101/64
[2020-06-16] MEDS: BENAZEPRIL HCL 10 MG TAB PO SCH (09:50)
[2020-06-16] MEDS: FERROUS SULFATE 325 MG TAB PO SCH ×2 (09:50→17:33)
[2020-06-16] MEDS: ASPirin-EC 81 mg tab PO SCH (09:50)
[2020-06-16] MEDS: ZINC SULFATE 220mg CAP or TAB PO SCH (09:50)
[2020-06-16] MEDS: ASCORBIC ACID 1,000 MG TAB PO SCH (09:51)
[2020-06-16] MEDS: FAMOTIDINE 20 MG TAB PO SCH (09:51)
[2020-06-16] MEDS: METOPROLOL SUCCINATE XL 50 MG TAB PO SCH (09:51)
[2020-06-16] MEDS: amLODIPine BESYLATE 5 MG TAB PO SCH (09:51)
[2020-06-16] MEDS: ESCITALOPRAM 10MG PO SCH (09:52)
[2020-06-16] MEDS: CHOLECALCIFEROL (VITD3) 2,000 UNIT CAP PO SCH (09:52)
[2020-06-16 13:00] VITALS: BP 139/91
[2020-06-16 17:00] VITALS: BP 119/67
== END 2020-06-16 19:37 | disposition home or self-care (01) | DRG 137 ==
LOC: ER 17:58 → EDBD 17:58 → TELE 17:59 → TELE-CENTR 22:49 → TELE-WESTW 06-12 17:53
PROVIDERS: ADMIT Nurse Practitioner; ATTEND Internal Medicine
PROC: XW033E5 Introduction of Remdesivir Anti-infective into Peripheral Vein, Percutaneous Approach, New Technology Group 5 (ICD-10-PCS; 2020-05-25)
PROC: XW13325 Transfusion of Convalescent Plasma (Nonautologous) into Peripheral Vein, Percutaneous Approach, New Technology Group 5 (ICD-10-PCS; principal; 2020-05-26)
DX: U07.1 COVID-19 (principal); J96.01 Acute respiratory failure with hypoxia; J12.89 Other viral pneumonia; D64.9 Anemia, unspecified; N39.0 Urinary tract infection, site not specified; F20.9 Schizophrenia, unspecified; E03.9 Hypothyroidism, unspecified; E44.0 Moderate protein-calorie malnutrition; J98.11 Atelectasis; E66.01 Morbid (severe) obesity due to excess calories; Z68.44 Body mass index [BMI] 60.0-69.9, adult; I12.9 Hypertensive chronic kidney disease with stage 1 through stage 4 chronic kidney disease, or unspecified chronic kidney disease; N18.2 Chronic kidney disease, stage 2 (mild); F17.210 Nicotine dependence, cigarettes, uncomplicated; J91.8 Pleural effusion in other conditions classified elsewhere; F12.90 Cannabis use, unspecified, uncomplicated; D61.818 Other pancytopenia
CPT/HCPCS: 36415; 71045; 80048; 80053; 81001; 81025; 82728; 83605; 83615; 83735; 83880; 84443; 84484; 85007; 85025; 85027; 85379; 85610; 85730; 86141; 86850; 86900; 86901; 87040; 87081; 87426; 93005; 94640; 97163; G0378; J0696; J1100; J2405; J3490